=== PATIENT | female | born 1940 | race Caucasian/White ===

== ENCOUNTER 2017-02-01 23:26 | Emergency (ER) | payer MEDICARE, OTHER ==
[2017-02-02] MEDS ORDERED: Ciprofloxacin in D5W 400 MG in Premix Bag 1 BAG IV ONE ×2 (01:39)
[2017-02-02 02:17] VITALS: BP 140/78
--- NOTE | 2017-02-02 02:27 | EDM.PDOC ---
ED HPI SEPSIS - General Chief Complaint: Fever Stated Complaint: SHAKING Time Seen by Provider: 02/01/17 23:55 Source: Reports: Patient History Limitations: Reports: No limitations - History of Present Illness INITIAL COMMENTS - FREE TEXT/NARRATIVE: History of present illness: [This 76-year-old female presented to the ER with a history of having shaking chills that started at 8:30 PM out of the blue. She had been feeling fine prior to this. She presented here with a fever of 103.5. She does not have a sore throat or cough or dysuria or abdominal pain or skin infections or any source of infection to explain this. She has been in relatively good health.] Review of systems: As per history of present illness and below otherwise all systems reviewed and negative. Past medical history: As per history of present illness and as reviewed below otherwise noncontributory. Surgical history: As per history of present illness and as reviewed below otherwise noncontributory. Social history: No reported history of drug or alcohol abuse. Family history: As per history of present illness and as reviewed below otherwise noncontributory. Physical exam: HEENT: Atraumatic, normocephalic, pupils reactive, negative for conjunctival pallor or scleral icterus, mucous membranes moist, throat clear, neck supple, nontender, trachea midline. Lungs: Clear to auscultation, breath sounds equal bilaterally, chest nontender. Heart: S1S2, regular, negative for clicks, rubs, or JVD. Abdomen: Soft, nondistended, nontender. Negative for masses or hepatosplenomegaly. Pelvis: Stable nontender. Genitourinary: Deferred. Rectal: Deferred. Extremities: Atraumatic, negative for cords or calf pain. Neurovascular unremarkable. Neuro: Awake, alert, oriented. Cranial nerves II through XII unremarkable. Cerebellum unremarkable. Motor and sensory unremarkable throughout. Exam nonfocal. Diagnostics: [CBC shows a slight elevation of the white count with a left shift. Chest x- ray looked clear. Blood cultures were obtained. UA and urine cultures were obtained. Urinalysis suggests UTI and with the fever the possibility of pyelonephritis] Therapeutics: [Patient was given IV Cipro 400 mg] Impression: [UTI with probable upper tract involvement] Plan: [Cipro 500 mg twice a day for 7 days. Follow up in the clinic or ER if she continues to have fevers and chills that are not resolving in the next 24-48 hours.] Definitive disposition and diagnosis as appropriate pending reevaluation and review of above. - Related Data Allergies/ADRs: Allergies Allergy/AdvReac Type Severity Reaction Status Date / Time lisinopril Allergy Cough Verified 02/01/17 23:45 Penicillins Allergy Rash Verified 01/10/15 20:53 Sulfa (Sulfonamide Allergy Rash Verified 01/10/15 20:53 Antibiotics) Home Meds: Home Meds Aspirin [Low Dose Aspirin EC] 81 mg PO DAILY 12/30/14 [History] Cholecalciferol (Vitamin D3) [Vitamin D3] 1 cap PO DAILY 12/30/14 [History] Fish Oil/DHA/EPA [Fish Oil 1,200 MG] 1,200 mg PO DAILY 12/30/14 [History] Ibuprofen 600 mg PO BID PRN 12/30/14 [History] Multivitamin with Minerals [Multiple Vitamin] 1 tab PO DAILY 12/30/14 [History] Oxyquinoline/Sod.Lauryl Sulf [Trimo-Day Jelly] 1 applic VAG ASDIRECTED PRN 12/30 [History] amLODIPine Besylate [Norvasc] 2.5 mg PO BEDTIME 12/30/14 [History] Metoprolol Succinate [Toprol XL] 50 mg PO DAILY 01/10/15 [History] Acetaminophen [Acetaminophen Extra Strength] 500 mg PO Q4HR PRN 02/02/17 [ History] Ascorbate Calcium/Bioflavonoid [Sakshi-C 500 MG] 1 each PO DAILY 02/02/17 [ History] Losartan [Cozaar] 50 mg PO DAILY 02/02/17 [History] Methocarbamol [Robaxin] 500 mg PO Q4HR 02/02/17 [History] Ranitidine HCl [Zantac 75] 75 mg PO BID 02/02/17 [History] Past Medical History HEENT History: Reports: Cataract Cardiovascular History: Reports: High cholesterol, Hypertension Gastrointestinal History: Reports: GERD 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: , 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 (see below) Other OB/BYN History: Menopausal Musculoskeletal History: Reports: Osteoarthritis, Other (see below) Other Musculoskeletal History: Back spasms Endocrine/Metabolic History: Reports: Vitamin D deficiency - Infectious Disease History Infectious Disease History: Reports: Chicken pox - Past Surgical History HEENT Surgical History: Reports: Adenoidectomy, Tonsillectomy GI Surgical History: Reports: Appendectomy, Cholecystectomy, Other (see below) Other GI Surgeries/Procedures: Exploratory Lap Social & Family History - Tobacco Use Smoking Status *Q: Never Smoker Second Hand Smoke Exposure: No - Caffeine Use Caffeine Use: Reports: Coffee - Alcohol Use Days Per Week of Alcohol Use: 0 - Recreational Drug Use Recreational Drug Use: No ED ROS GENERAL - Review of Systems Review Of Systems: ROS reveals no pertinent complaints other than HPI. ED EXAM, SEPSIS - Physical Exam Exam: See Below Course - Vital Signs Last Recorded V/S: Last Vital Signs Temp 37.8 C 02/02/17 02:16 Pulse 89 02/02/17 02:16 Resp 17 02/02/17 02:16 BP 140/78 02/02/17 02:16 Pulse Ox 96 02/02/17 02:16 - Orders/Labs/Meds Orders: Active Orders 24 hr Category Date Time Status Chest 2V [CR] Stat Exams 02/02/17 00:15 Taken Ciprofloxacin in D5W [Cipro in D5W 400 MG/200 ML] 400 Med 02/02/17 01:39 Active mg Premix Bag 1 bag IV ONETIME Medication Orders Ciprofloxacin/Dextrose 400 mg/ (Premix) 200 mls @ 200 mls/hr IV ONETIME ONE Stop: 02/02/17 02:38 Last Admin: 02/02/17 02:11 Dose: 200 mls/hr Labs: Laboratory Tests 02/01/17 02/01/17 02/01/17 Range/Units 00:05 00:05 00:05 WBC 12.4 H (4.5-11.0) K/uL RBC 4.91 (3.30-5.50) M/uL Hgb 14.4 (12.0-15.0) g/dL Hct 43.6 (36.0-48.0) % MCV 89 (80-98) fL MCH 29 (27-31) pg MCHC 33 (32-36) % Plt Count 273 (150-400) K/uL Neut % (Auto) 94 H (36-66) % Lymph % (Auto) 3 L (24-44) % [place] % (Auto) 2 (2-6) % Eos % (Auto) 1 L (2-4) % Baso % (Auto) 0 (0-1) % Sodium 143 (140-148) mmol/L Potassium 3.8 (3.6-5.2) mmol/L Chloride 105 (100-108) mmol/L Carbon Dioxide 25 (21-32) mmol/L Anion Gap 13.5 (5.0-14.0) mmol/L BUN 19 H (7-18) mg/dL Creatinine 0.7 (0.6-1.0) mg/dL Est Cr Clr Drug Dosing 60.89 mL/min Estimated GFR (MDRD) > 60 (>60) Glucose 119 H (74-106) mg/dL Lactic Acid 1.7 (0.4-2.0) mmol/L Calcium 10.0 (8.5-10.1) mg/dL Total Bilirubin 1.4 H D (0.2-1.0) mg/dL AST 18 (15-37) U/L ALT 46 (12-78) U/L Alkaline Phosphatase 94 (46-116) U/L C-Reactive Protein (0.0-0.3) mg/dL Total Protein 7.3 (6.4-8.2) g/dL Albumin 4.2 (3.4-5.0) g/dL Globulin 3.1 (2.3-3.5) g/dL Albumin/Globulin Ratio 1.4 (1.2-2.2) Urine Color Urine Appearance Urine pH (4.5-8.0) Ur Specific [place] (1.008-1.030) Urine Protein (NEGATIVE) mg/dL Urine Glucose (UA) (NEGATIVE) mg/dL Urine Ketones (NEGATIVE) mg/dL Urine Occult Blood (NEGATIVE) Urine Nitrite (NEGATIVE) Urine Bilirubin (NEGATIVE) Urine Urobilinogen (NORMAL) mg/dL Ur Leukocyte Esterase (NEGATIVE) Urine RBC (0-5) Urine WBC (0-5) Ur Epithelial Cells Amorphous Sediment Urine Bacteria Urine Mucus 02/01/17 02/02/17 Range/Units 00:05 00:48 WBC (4.5-11.0) K/uL RBC (3.30-5.50) M/uL Hgb (12.0-15.0) g/dL Hct (36.0-48.0) % MCV (80-98) fL MCH (27-31) pg MCHC (32-36) % Plt Count (150-400) K/uL Neut % (Auto) (36-66) % Lymph % (Auto) (24-44) % [place] % (Auto) (2-6) % Eos % (Auto) (2-4) % Baso % (Auto) (0-1) % Sodium (140-148) mmol/L Potassium (3.6-5.2) mmol/L Chloride (100-108) mmol/L Carbon Dioxide (21-32) mmol/L Anion Gap (5.0-14.0) mmol/L BUN (7-18) mg/dL Creatinine (0.6-1.0) mg/dL Est Cr Clr Drug Dosing mL/min Estimated GFR (MDRD) (>60) Glucose (74-106) mg/dL Lactic Acid (0.4-2.0) mmol/L Calcium (8.5-10.1) mg/dL Total Bilirubin (0.2-1.0) mg/dL AST (15-37) U/L ALT (12-78) U/L Alkaline Phosphatase (46-116) U/L C-Reactive Protein 0.20 (0.0-0.3) mg/dL Total Protein (6.4-8.2) g/dL Albumin (3.4-5.0) g/dL Globulin (2.3-3.5) g/dL Albumin/Globulin Ratio (1.2-2.2) Urine Color Yellow Urine Appearance Slightly cloudy Urine pH 6.0 (4.5-8.0) Ur Specific [place] 1.015 (1.008-1.030) Urine Protein Negative (NEGATIVE) mg/dL Urine Glucose (UA) Normal (NEGATIVE) mg/dL Urine Ketones Negative (NEGATIVE) mg/dL Urine Occult Blood Negative (NEGATIVE) Urine Nitrite Positive H (NEGATIVE) Urine Bilirubin Negative (NEGATIVE) Urine Urobilinogen Normal (NORMAL) mg/dL Ur Leukocyte Esterase Negative (NEGATIVE) Urine RBC Not seen (0-5) Urine WBC 5-10 H (0-5) Ur Epithelial Cells Few Amorphous Sediment Not seen Urine Bacteria Many Urine Mucus Not seen Meds: Medications Generic Name Dose Route Start Last Admin Trade Name Freq PRN Reason Stop Dose Admin Ciprofloxacin/Dextrose 400 mg/ 200 mls @ 200 mls/hr 02/02/17 01:39 02/02/17 02:11 Premix IV 02/02/17 02:38 200 mls/hr ONETIME ONE Administration Departure - Departure Time of Disposition: 02:25 Disposition: Home, Self-Care 01 Condition: good Clinical Impression: Pyelonephritis Forms: ED Department Discharge Additional Instructions: If you are still having trouble with fever and chills next 24-48 hours he should be seen again. He will either have to go to the clinic or come to the ER. The antibiotics that were giving you should be covering the karla that is causing the fever and chills and if the fever and chills persisted could be that we'll have to switch her to a different antibiotic. - My Orders Last 24 Hours: My Active Orders 02/02/17 00:15 Chest 2V [CR] Stat 02/02/17 01:39 Ciprofloxacin in D5W [Cipro in D5W 400 MG/200 ML] 400 mg Premix Bag 1 bag IV ONETIME - Assessment/Plan Last 24 Hours: My Active Orders 02/02/17 00:15 Chest 2V [CR] Stat 02/02/17 01:39 Ciprofloxacin in D5W [Cipro in D5W 400 MG/200 ML] 400 mg Premix Bag 1 bag IV ONETIME
--- NOTE | 2017-02-02 09:00 | CR ---
Heart size within normal limits. No focal consolidation. Tortuous aorta. Faint nodule right midlung zone near 6 mm. Recommend noncontrast chest CT follow-up to exclude pulmonary nodule
== END 2017-02-02 03:20 | disposition home or self-care (01) ==
LOC: JP.ED 23:26
DX: N12 Tubulo-interstitial nephritis, not specified as acute or chronic (principal); I10 Essential (primary) hypertension; E78.00 Pure hypercholesterolemia, unspecified; K21.9 Gastro-esophageal reflux disease without esophagitis; Z90.49 Acquired absence of other specified parts of digestive tract; Z98.890 Other specified postprocedural states; Z88.0 Allergy status to penicillin; Z88.2 Allergy status to sulfonamides; Z88.8 Allergy status to other drugs, medicaments and biological substances; Z79.82 Long term (current) use of aspirin; Z79.899 Other long term (current) drug therapy
CPT/HCPCS: 36415; 71020; 80053; 81001; 83605; 85025; 86140; 87040; 87077; 87186; 87804; 96365; 99284; J0744

== ENCOUNTER 2017-02-02 16:50 | Inpatient (IN) | payer MEDICARE, OTHER ==
[2017-02-02] MEDS ORDERED: Polyethylene Glycol 3350 Powder 17 GM Packet PO PRN (17:14)
[2017-02-02] MEDS ORDERED: Magnesium Hydroxide 400 MG/5 ML Susp 30 ML Cup PO PRN (17:14)
[2017-02-02] MEDS ORDERED: Sodium Chloride 0.9% 10 ML Syringe FLUSH PRN (17:14)
[2017-02-02] MEDS ORDERED: oxyCODONE 5 MG Tab PO PRN (17:14)
[2017-02-02] MEDS ORDERED: Ondansetron 4 MG/2 ML SDV IV PRN (17:14)
[2017-02-02] MEDS ORDERED: Docusate Sodium 100 MG Cap PO PRN (17:14)
[2017-02-02] MEDS ORDERED: HYDROmorphone 0.5 MG/0.5 ML Syringe IVPUSH PRN (17:23)
--- NOTE | 2017-02-02 19:14 | PCM.HP ---
H&P History of Present Illness - General Date of Service: 02/02/17 Admit Problem/Dx: Admission Diagnosis/Problem Admission Diagnosis/Problem Pyelonephritis Source of Information: Patient, Family, Provider, RN notes reviewed History Limitations: Reports: No limitations - History of Present Illness Initial Comments - Free Text/Narative: Ms. Hdez is a 76-year-old woman who developed fever and chills last night. When her symptoms did not resolve she presented to the emergency department late in the evening, chest x-ray was unremarkable, white blood cell count was modestly elevated. Urinalysis was obtained and showed evidence of possible infection with 5-10 WBCs and positive nitrites with many bacteria. She was given IV ciprofloxacin in the emergency department and discharged to home with a prescription for oral ciprofloxacin and a presumptive diagnosis of urinary tract infection, probable pyelonephritis. She did not feel well this morning and did have mild recurrent temperature elevation so she presented to the walk- in clinic for further evaluation. On evaluation there she was hemodynamically stable but did have mild persistent elevation in her white blood cell count. She was referred for direct admission for management of presumptive pyelonephritis. At the present time she is feeling relatively well and denies significant flank pain or tenderness. Vital signs are stable and she is currently afebrile. - Related Data Allergies/Adverse Reactions: Allergies Allergy/AdvReac Type Severity Reaction Status Date / Time Penicillins Allergy Rash Verified 01/10/15 20:53 Sulfa (Sulfonamide Allergy Rash Verified 01/10/15 20:53 Antibiotics) lisinopril AdvReac Cough Verified 02/02/17 17:30 Home Medications: Home Meds Aspirin [Low Dose Aspirin EC] 81 mg PO DAILY 12/30/14 [History] Cholecalciferol (Vitamin D3) [Vitamin D3] 1 cap PO DAILY 12/30/14 [History] Fish Oil/DHA/EPA [Fish Oil 1,200 MG] 1,200 mg PO DAILY 12/30/14 [History] Ibuprofen 600 mg PO BID PRN 12/30/14 [History] Multivitamin with Minerals [Multiple Vitamin] 1 tab PO DAILY 12/30/14 [History] Oxyquinoline/Sod.Lauryl Sulf [Trimo-Day Jelly] 1 applic VAG ASDIRECTED PRN 12/30 [History] amLODIPine Besylate [Norvasc] 2.5 mg PO BEDTIME 12/30/14 [History] Metoprolol Succinate [Toprol XL] 50 mg PO DAILY 01/10/15 [History] Acetaminophen [Acetaminophen Extra Strength] 500 mg PO Q4HR PRN 02/02/17 [ History] Ascorbate Calcium/Bioflavonoid [Sakshi-C 500 MG] 1 each PO DAILY 02/02/17 [ History] Losartan [Cozaar] 50 mg PO DAILY 02/02/17 [History] Methocarbamol [Robaxin] 500 mg PO Q4HR 02/02/17 [History] Ranitidine HCl [Zantac 75] 75 mg PO BID 02/02/17 [History] Past Medical History HEENT History: Reports: Cataract Cardiovascular History: Reports: High cholesterol, Hypertension Gastrointestinal History: Reports: GERD 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: , Other (see below) Other OB/BYN History: Menopausal Musculoskeletal History: Reports: Osteoarthritis, Other (see below) Other Musculoskeletal History: Back spasms Endocrine/Metabolic History: Reports: Vitamin D deficiency - Infectious Disease History Infectious Disease History: Reports: Chicken pox - Past Surgical History HEENT Surgical History: Reports: Adenoidectomy, Tonsillectomy GI Surgical History: Reports: Appendectomy, Cholecystectomy, Other (see below) Other GI Surgeries/Procedures: Exploratory Lap Social & Family History - Tobacco Use Smoking Status *Q: Never Smoker Second Hand Smoke Exposure: No - Caffeine Use Caffeine Use: Reports: Coffee - Alcohol Use Days Per Week of Alcohol Use: 0 - Recreational Drug Use Recreational Drug Use: No H&P Review of Systems - Review of Systems: Review Of Systems: See Below General: Reports: fever, chills, weakness, diaphoresis HEENT: Reports: no symptoms Pulmonary: Reports: No Symptoms Cardiovascular: Reports: no symptoms Gastrointestinal: Reports: No symptoms Genitourinary: Reports: no symptoms Musculoskeletal: Reports: no symptoms Skin: Reports: no symptoms Psychiatric: Reports: no symptoms Neurological: Reports: No Symptoms Hematologic/Lymphatic: Reports: no symptoms Immunologic: Reports: no symptoms Exam - Exam Exam: See Below - Vital Signs Vital Signs: Last Vital Signs Temp 101.2 F H 02/02/17 17:20 Pulse 89 02/02/17 17:20 Resp 12 02/02/17 17:20 BP 143/66 H 02/02/17 17:20 Pulse Ox 97 02/02/17 17:20 Weight: 152 lb 1.903 oz - Exam Quality Assessment: DVT prophylaxis General: alert, oriented, cooperative HEENT: Conjunctiva clear, Hearing intact, Mucosa moist & pink, Nares patent, Normal nasal septum, Posterior pharynx clear, Pupils equal, Pupils reactive Neck: supple, trachea midline, +2 carotid pulse wo bruit Lungs: Clear to auscultation, Normal respiratory effort Cardiovascular: regular rate, regular rhythm, normal S1, normal S2. No: irregular rhythm, bradycardia, tachycardia, systolic murmur, diastolic murmur Abdomen: normal bowel sounds, soft Back Exam: normal inspection, full range of motion. No: CVA tenderness (R), CVA tenderness (L) Extremities: 3, normal inspection, 10 Skin: warm, dry, intact Neurological: cranial nerves intact, strength equal bilateral, normal speech, normal tone, sensation intact. No: focal deficit Neuro Extensive - Mental Status: alert, oriented x3, normal mood/affect, normal cognition, memory intact *Q Meaningful Use (ADM) - VTE *Q VTE Criteria *Q: - VTE Risk Assess *Q Each Risk Factor Represents 1 Point: None Total Score 1 Point Risk Factors: 0 Each Risk Factor Represents 2 Points: Age 60 - 74 Years Total Score 2 Point Risk Factors: 2 Each Risk Factor Represents 3 Points: None Total Score 3 Point Risk Factors: 0 Each Risk Factor Represents 5 Points: None Total Score 5 Point Risk Factors: 0 Venous Thromboembolism Risk Factor Score *Q: 2 - Stroke *Q Stroke Criteria *Q: - AMI *Q AMI Criteria *Q: Problem List Initiated/Reviewed/Updated: Yes Orders Last 24hrs: Active Orders 24 hr Category Date Time Status Patient Status [ADT] Routine ADT 02/02/17 17:15 Active Intake and Output [RC] QSHIFT Care 02/02/17 17:15 Active Notify Provider Vital Signs [RC] ASDIRECTED Care 02/02/17 17:16 Active Oxygen Therapy [RC] PRN Care 02/02/17 17:15 Active Peripheral IV Care [RC] . DIRECTED Care 02/02/17 17:20 Active Up With Assistance [RC] ASDIRECTED Care 02/02/17 17:14 Active VTE/DVT Education [RC] Per Unit Routine Care 02/02/17 17:15 Active Vital Signs [RC] Q4H Care 02/02/17 17:15 Active Regular Diet [DIET] Diet 02/02/17 Dinner Active CBC WITH AUTO DIFF [HEME] AM Lab 02/03/17 05:11 Ordered COMPREHENSIVE METABOLIC PN,CMP [CHEM] AM Lab 02/03/17 05:11 Ordered CULTURE BLOOD [BC] Stat Lab 02/02/17 17:35 Received CULTURE BLOOD [BC] Stat Lab 02/02/17 17:45 Received MAGNESIUM [CHEM] AM Lab 02/03/17 05:11 Ordered Acetaminophen [Tylenol] Med 02/02/17 17:14 Active 650 mg PO Q4H PRN Aspirin [Halfprin] Med 02/03/17 09:00 Active 81 mg PO DAILY Docusate Sodium [Colace] Med 02/02/17 17:14 Active 100 mg PO BID PRN Enoxaparin [Lovenox] Med 02/02/17 21:00 Active 40 mg SUBCUT Q24H HYDROmorphone [Dilaudid] Med 02/02/17 17:23 Active 0.5 mg IVPUSH Q2H PRN Lactated Ringers [Ringers, Lactated] 1,000 ml Med 02/02/17 17:15 Active IV ASDIRECTED Losartan [Cozaar] Med 02/03/17 09:00 Active 50 mg PO DAILY Magnesium Hydroxide [Milk of Magnesia] Med 02/02/17 17:14 Active 30 ml PO Q12H PRN Metoprolol Succinate [Toprol XL] Med 02/03/17 09:00 Active 50 mg PO DAILY Ondansetron [Zofran] Med 02/02/17 17:14 Active 4 mg IV Q4H PRN Pantoprazole [Protonix] Med 02/03/17 07:30 Active 40 mg PO DAILY@0730 Polyethylene Glycol 3350 [MiraLAX] Med 02/02/17 17:14 Active 17 gm PO DAILY PRN Sodium Chloride 0.9% [Saline Flush] Med 02/02/17 17:14 Active 10 ml FLUSH ASDIRECTED PRN amLODIPine [Norvasc] Med 02/02/17 21:00 Active 2.5 mg PO BEDTIME cefTRIAXone [Rocephin] 1 gm Med 02/02/17 18:00 Active Sodium Chloride 0.9% [Normal Saline] 50 ml IV Q24H oxyCODONE Med 02/02/17 17:14 Active 5 mg PO Q4H PRN Blood Culture x2 Reflex Set [OM.PC] Stat Oth 02/02/17 17:20 Ordered Peripheral IV Insertion Adult [OM.PC] Routine Oth 02/02/17 17:14 Ordered Resuscitation Status Routine Resus Stat 02/02/17 17:14 Ordered Medication Orders Acetaminophen (Tylenol) 650 mg PO Q4H PRN PRN Reason: Pain (Mild 1-3)/fever Amlodipine Besylate (Norvasc) 2.5 mg PO BEDTIME KAYLA Aspirin (Halfprin) 81 mg PO DAILY KAYLA Docusate Sodium (Colace) 100 mg PO BID PRN PRN Reason: Constipation Enoxaparin Sodium (Lovenox) 40 mg SUBCUT Q24H KAYLA Hydromorphone HCl (Dilaudid) 0.5 mg IVPUSH Q2H PRN PRN Reason: Pain Lactated Ringer's (Ringers, Lactated) 1,000 mls @ 125 mls/hr IV ASDIRECTED KAYLA Ceftriaxone Sodium 1 gm/ (Sodium Chloride) 50 mls @ 100 mls/hr IV Q24H KAYLA Losartan Potassium (Cozaar) 50 mg PO DAILY KAYLA Magnesium Hydroxide (Milk Of Magnesia) 30 ml PO Q12H PRN PRN Reason: Constipation Metoprolol Succinate (Toprol Xl) 50 mg PO DAILY KAYLA Ondansetron HCl (Zofran) 4 mg IV Q4H PRN PRN Reason: Nausea/Vomiting Oxycodone HCl (Oxycodone) 5 mg PO Q4H PRN PRN Reason: Pain (moderate 4-6) Pantoprazole Sodium (Protonix) 40 mg PO DAILY@0730 KAYLA Polyethylene Glycol (Miralax) 17 gm PO DAILY PRN PRN Reason: Constipation Sodium Chloride (Saline Flush) 10 ml FLUSH ASDIRECTED PRN PRN Reason: Keep Vein Open Assessment/Plan Comment:: ASSESSMENT AND PLAN URINARY TRACT INFECTION-associated with significant temperature elevation on initial presentation. Mild temperature elevation since evaluation last night with weakness and fatigue. She carries a presumptive diagnosis of pyelonephritis, has not experienced significant flank pain and there has been no confirmatory CT scan. -Blood cultures and urine culture pending -Pain and antiemetic therapy as needed -IV fluids for hydration -IV Rocephin 1 g 24 hours pending culture results HYPERTENSION -Continue outpatient medical regimen MAINTENANCE ISSUES -DVT prophylaxis; Lovenox 40 mg subcutaneous daily -GI prophylaxis; Protonix 40 mg by mouth daily -Tate catheter; none indicated -Nutrition; regular diet -Nicotine dependence; not required CODE STATUS-full code ADMISSION STATUS-patient will be admitted to inpatient status, expect at least a 2 night hospital stay for evaluation and management of problems as outlined above. At the time of this admission I do not reasonably expected evaluation and management of this problem will require more than a 96 hour hospital stay. DISPOSITION-anticipate discharge to home after the hospital stay. PRIMARY CARE PROVIDER-Pablo Mcconnell
[2017-02-02] MEDS: Lactated Ringers 1,000 ML IV SCH (20:27)
[2017-02-02] MEDS: cefTRIAXone 1 GM in Sodium Chloride 0.9% 50 ML IV SCH (20:28)
[2017-02-02] MEDS: Acetaminophen 325 MG Tab PO PRN (20:36)
[2017-02-02] MEDS: Enoxaparin 40 MG/0.4 ML Syringe SUBCUT SCH (22:06)
[2017-02-02] MEDS: amLODIPine 2.5 MG Tab PO SCH (22:08)
[2017-02-03] MEDS: Acetaminophen 325 MG Tab PO PRN (03:40)
[2017-02-03] MEDS: Lactated Ringers 1,000 ML IV SCH ×2 (03:55→13:22)
[2017-02-03] MEDS: Pantoprazole 40 MG Tab.CR PO SCH (07:29)
[2017-02-03] MEDS: Metoprolol Succinate 50 MG Tab.ER PO SCH (09:03)
[2017-02-03] MEDS: Losartan 50 MG Tab PO SCH (09:04)
[2017-02-03] MEDS: Aspirin 81 MG Tab.EC PO SCH (09:04)
[2017-02-03] MEDS ORDERED: Potassium Chloride 20 MEQ Tab.ER PO ONE (10:00)
[2017-02-03] MEDS: Magnesium Oxide 400 MG Tab PO SCH ×2 (10:57→22:03)
--- NOTE | 2017-02-03 14:01 | PCM.PN ---
- General Info Date of Service: 02/03/17 Functional Status: Reports: tolerating diet, ambulating, urinating - Review of Systems General: Reports: Fever. Denies: Weakness, Fatigue, Chills Pulmonary: Reports: no symptoms Cardiovascular: Reports: No Symptoms Gastrointestinal: Reports: No symptoms Genitourinary: Reports: no symptoms Systems Review Comment:: This patient has been stable since admission, there have been recurrent mild temperature elevations. Vital signs have been stable, continues to deny significant flank or abdominal pain. - Patient Data Vitals - most recent: Last Vital Signs Temp 96.2 F 02/03/17 11:24 Pulse 75 02/03/17 11:24 Resp 16 02/03/17 11:24 BP 139/67 02/03/17 11:24 Pulse Ox 99 02/03/17 11:24 Weight - most recent: 152 lb 1.903 oz I&O - last 24 hours: Intake & Output 02/02/17 02/03/17 02/03/17 22:59 06:59 14:59 Intake Total 50 1071 660 Output Total 500 1200 Balance 50 571 -540 Lab Results last 24 hrs: Laboratory Results - last 24 hr 02/03/17 02/03/17 Range/Units 05:40 05:40 WBC 5.5 (4.5-11.0) K/uL RBC 4.52 (3.30-5.50) M/uL Hgb 13.3 (12.0-15.0) g/dL Hct 40.3 (36.0-48.0) % MCV 89 (80-98) fL MCH 29 (27-31) pg MCHC 33 (32-36) % Plt Count 204 (150-400) K/uL Neut % (Auto) 88 H (36-66) % Lymph % (Auto) 6 L (24-44) % [place] % (Auto) 6 (2-6) % Eos % (Auto) 0 L (2-4) % Baso % (Auto) 0 (0-1) % Sodium 142 (140-148) mmol/L Potassium 3.3 L (3.6-5.2) mmol/L Chloride 106 (100-108) mmol/L Carbon Dioxide 26 (21-32) mmol/L Anion Gap 13.3 (5.0-14.0) mmol/L BUN 9 D (7-18) mg/dL Creatinine 0.7 (0.6-1.0) mg/dL Est Cr Clr Drug Dosing 60.89 mL/min Estimated GFR (MDRD) > 60 (>60) Glucose 110 H (74-106) mg/dL Calcium 8.7 (8.5-10.1) mg/dL Magnesium 1.7 L (1.8-2.4) mg/dL Total Bilirubin 0.7 (0.2-1.0) mg/dL AST 31 (15-37) U/L ALT 51 (12-78) U/L Alkaline Phosphatase 81 (46-116) U/L Total Protein 6.1 L (6.4-8.2) g/dL Albumin 3.2 L (3.4-5.0) g/dL Globulin 2.9 (2.3-3.5) g/dL Albumin/Globulin Ratio 1.1 L (1.2-2.2) Med Orders - Current: Current Medications Acetaminophen (Tylenol) 650 mg PO Q4H PRN PRN Reason: Pain (Mild 1-3)/fever Last Admin: 02/03/17 03:40 Dose: 650 mg Amlodipine Besylate (Norvasc) 2.5 mg PO BEDTIME [facility] Last Admin: 02/02/17 22:08 Dose: 2.5 mg Aspirin (Halfprin) 81 mg PO DAILY [facility] Last Admin: 02/03/17 09:04 Dose: 81 mg Docusate Sodium (Colace) 100 mg PO BID PRN PRN Reason: Constipation Enoxaparin Sodium (Lovenox) 40 mg SUBCUT Q24H [facility] Last Admin: 02/02/17 22:06 Dose: 40 mg Hydromorphone HCl (Dilaudid) 0.5 mg IVPUSH Q2H PRN PRN Reason: Pain Ceftriaxone Sodium 1 gm/ (Sodium Chloride) 50 mls @ 100 mls/hr IV Q24H [facility] Last Admin: 02/02/17 20:28 Dose: 100 mls/hr Losartan Potassium (Cozaar) 50 mg PO DAILY [facility] Last Admin: 02/03/17 09:04 Dose: 50 mg Magnesium Hydroxide (Milk Of Magnesia) 30 ml PO Q12H PRN PRN Reason: Constipation Magnesium Oxide (Magnesium Oxide) 400 mg PO BID [facility] Last Admin: 02/03/17 10:57 Dose: 400 mg Metoprolol Succinate (Toprol Xl) 50 mg PO DAILY [facility] Last Admin: 02/03/17 09:03 Dose: 50 mg Ondansetron HCl (Zofran) 4 mg IV Q4H PRN PRN Reason: Nausea/Vomiting Oxycodone HCl (Oxycodone) 5 mg PO Q4H PRN PRN Reason: Pain (moderate 4-6) Pantoprazole Sodium (Protonix) 40 mg PO DAILY@0730 [facility] Last Admin: 02/03/17 07:29 Dose: 40 mg Polyethylene Glycol (Miralax) 17 gm PO DAILY PRN PRN Reason: Constipation Sodium Chloride (Saline Flush) 10 ml FLUSH ASDIRECTED PRN PRN Reason: Keep Vein Open Discontinued Medications Lactated Ringer's (Ringers, Lactated) 1,000 mls @ 125 mls/hr IV ASDIRECTED [facility] Last Admin: 02/03/17 13:22 Dose: 125 mls/hr Potassium Chloride (Klor-Con M20) 40 meq PO ONETIME ONE Stop: 02/03/17 10:01 Last Admin: 02/03/17 10:57 Dose: 40 meq - Exam Quality Assessment: DVT prophylaxis General: alert, oriented, cooperative, no acute distress Lungs: Clear to auscultation, Normal respiratory effort Cardiovascular: Regular Rate, Regular Rhythm, No Murmurs Abdomen: bowel sounds present, soft, no tenderness, no distension Extremities: no edema Skin: warm, dry, intact - Problem List Review Problem List Initiated/Reviewed/Updated: Yes - My Orders Last 24 Hours: My Active Orders 02/02/17 17:14 Up With Assistance [RC] ASDIRECTED Acetaminophen [Tylenol] 650 mg PO Q4H PRN Docusate Sodium [Colace] 100 mg PO BID PRN Magnesium Hydroxide [Milk of Magnesia] 30 ml PO Q12H PRN Ondansetron [Zofran] 4 mg IV Q4H PRN Polyethylene Glycol 3350 [MiraLAX] 17 gm PO DAILY PRN Sodium Chloride 0.9% [Saline Flush] 10 ml FLUSH ASDIRECTED PRN oxyCODONE 5 mg PO Q4H PRN Peripheral IV Insertion Adult [OM.PC] Routine Resuscitation Status Routine 02/02/17 17:15 Patient Status [ADT] Routine Intake and Output [RC] QSHIFT Oxygen Therapy [RC] PRN VTE/DVT Education [RC] Per Unit Routine Vital Signs [RC] Q4H 02/02/17 17:16 Notify Provider Vital Signs [RC] ASDIRECTED 02/02/17 17:20 Peripheral IV Care [RC] . DIRECTED Blood Culture x2 Reflex Set [OM.PC] Stat 02/02/17 17:23 HYDROmorphone [Dilaudid] 0.5 mg IVPUSH Q2H PRN 02/02/17 17:35 CULTURE BLOOD [BC] Stat 02/02/17 17:45 CULTURE BLOOD [BC] Stat 02/02/17 18:00 cefTRIAXone [Rocephin] 1 gm Sodium Chloride 0.9% [Normal Saline] 50 ml IV Q24H 02/02/17 21:00 Enoxaparin [Lovenox] 40 mg SUBCUT Q24H amLODIPine [Norvasc] 2.5 mg PO BEDTIME 02/02/17 Dinner Regular Diet [DIET] 02/03/17 07:30 Pantoprazole [Protonix] 40 mg PO DAILY@0730 02/03/17 09:00 Aspirin [Halfprin] 81 mg PO DAILY Losartan [Cozaar] 50 mg PO DAILY Metoprolol Succinate [Toprol XL] 50 mg PO DAILY 02/03/17 10:00 Magnesium Oxide 400 mg PO BID 02/03/17 13:58 Convert IV to Saline Lock [OM.PC] Routine - Plan Plan:: ASSESSMENT AND PLAN URINARY TRACT INFECTION-associated with significant temperature elevation on initial presentation. Mild temperature elevation since evaluation last night with weakness and fatigue. She carries a presumptive diagnosis of pyelonephritis, has not experienced significant flank pain and there has been no confirmatory CT scan. Overall stable since admission with mild recurrent temperature elevation -Blood cultures and urine culture pending -Pain and antiemetic therapy as needed -Saline lock IV -IV Rocephin 1 g 24 hours pending culture results HYPERTENSION -Continue outpatient medical regimen MAINTENANCE ISSUES -DVT prophylaxis; Lovenox 40 mg subcutaneous daily -GI prophylaxis; Protonix 40 mg by mouth daily -Tate catheter; none indicated -Nutrition; regular diet -Nicotine dependence; not required CODE STATUS-full code ADMISSION STATUS-patient will be admitted to inpatient status, expect at least a 2 night hospital stay for evaluation and management of problems as outlined above. At the time of this admission I do not reasonably expected evaluation and management of this problem will require more than a 96 hour hospital stay. DISPOSITION-anticipate discharge to home tomorrow PRIMARY CARE PROVIDER-Pablo Mcconnell
[2017-02-03] MEDS: cefTRIAXone 1 GM in Sodium Chloride 0.9% 50 ML IV SCH (18:21)
[2017-02-03] MEDS: Enoxaparin 40 MG/0.4 ML Syringe SUBCUT SCH (22:03)
[2017-02-03] MEDS: amLODIPine 2.5 MG Tab PO SCH (22:03)
[2017-02-04 07:19] VITALS: BP 126/67
[2017-02-04] MEDS: Pantoprazole 40 MG Tab.CR PO SCH (07:21)
[2017-02-04] MEDS: Losartan 50 MG Tab PO SCH ×2 (07:38→10:35)
[2017-02-04] MEDS: Aspirin 81 MG Tab.EC PO SCH ×2 (07:39→10:35)
[2017-02-04] MEDS: Magnesium Oxide 400 MG Tab PO SCH ×2 (07:40→10:35)
[2017-02-04] MEDS: Metoprolol Succinate 50 MG Tab.ER PO SCH ×2 (07:40→10:35)
--- NOTE | 2017-02-04 12:43 | PCM.DCSUM1 ---
Discharge Summary - Hospital Course Brief History: Ms. Hdez is a 76-year-old woman who is admitted as a direct admission from the clinic with weakness and fever secondary to a urinary tract infection. - Discharge Data Discharge Date: 02/04/17 Discharge Disposition: Home, Self-Care 01 Condition: Good - Discharge Diagnosis/Problem(s) (1) UTI (urinary tract infection) SNOMED Code(s): 85806712 ICD Code: N39.0 - URINARY TRACT INFECTION, SITE NOT SPECIFIED Status: Acute Current Visit: Yes Qualifiers: Urinary tract infection type: acute cystitis Hematuria presence: without hematuria Qualified Code(s): N30.00 - Acute cystitis without hematuria - Patient Summary/Data Hospital Course: Ms. Hdez is a 76-year-old woman who developed shaking chills on the evening prior to admission. When symptoms did not resolve after a few hours she presented to the emergency department for further evaluation. On assessment was found to have modest elevation in white blood cell count and associated fever. She was given IV fluids for hydration. Other labs were unremarkable other than urinalysis consistent with urinary tract infection, and it was felt that she possibly had pyelonephritis. She was given a dose of IV ciprofloxacin in the emergency department and sent home with a prescription for oral ciprofloxacin. She continued to have temperature elevation through the extrusion technician hours in into the next day so she presented to the walk-in clinic. Again she was noted to have a modest elevation in white blood cell count, blood cultures from the previous night were reviewed one of 2 bottles was growing a gram-negative roberto. She was referred to the hospital for admission and ongoing management. Initially she was given IV fluids for hydration and started on IV antibiotic therapy with Rocephin. Blood cultures were repeated at the time of admission and remained negative throughout her hospital stay. Following day she was eating and drinking well, IV fluids were discontinued. She continued to feel mildly weak and had mild persistent temperature elevations. He was feeling improved by the day of discharge and will be discharged home on oral antibiotic therapy with Omnicef for an additional week. Activity will be as tolerated and she will resume her usual diet. Followup appointment will be scheduled with her primary care provider within one week. - Patient Instructions Diet: Usual Diet as Tolerated Activity: As Tolerated Other/Special Instructions: Setup followup appointment with primary care provider within one week. - Discharge Plan Prescriptions/Med Rec: Cefdinir [Omnicef] 300 mg PO BID #14 cap Home Medications: Home Meds Aspirin [Low Dose Aspirin EC] 81 mg PO DAILY 12/30/14 [History] Cholecalciferol (Vitamin D3) [Vitamin D3] 1 cap PO DAILY 12/30/14 [History] Fish Oil/DHA/EPA [Fish Oil 1,200 MG] 1,200 mg PO DAILY 12/30/14 [History] Ibuprofen 600 mg PO BID PRN 12/30/14 [History] Multivitamin with Minerals [Multiple Vitamin] 1 tab PO DAILY 12/30/14 [History] Oxyquinoline/Sod.Lauryl Sulf [Trimo-Day Jelly] 1 applic VAG ASDIRECTED PRN 12/30 [History] amLODIPine Besylate [Norvasc] 2.5 mg PO BEDTIME 12/30/14 [History] Metoprolol Succinate [Toprol XL] 50 mg PO DAILY 01/10/15 [History] Acetaminophen [Acetaminophen Extra Strength] 500 mg PO Q4HR PRN 02/02/17 [ History] Ascorbate Calcium/Bioflavonoid [Sakshi-C 500 MG] 1 each PO DAILY 02/02/17 [ History] Losartan [Cozaar] 50 mg PO DAILY 02/02/17 [History] Methocarbamol [Robaxin] 500 mg PO Q4HR 02/02/17 [History] Ranitidine HCl [Zantac 75] 75 mg PO BID 02/02/17 [History] Cefdinir [Omnicef] 300 mg PO BID #14 cap 02/04/17 [Rx] - Patient Data Vitals - Most Recent: Last Vital Signs Temp 98.7 F 02/04/17 07:17 Pulse 81 02/04/17 07:40 Resp 18 02/04/17 04:13 BP 126/67 02/04/17 07:40 Pulse Ox 94 L 02/04/17 07:17 Weight - Most Recent: 152 lb 1.903 oz I&O - Last 24 hours: Intake & Output 02/03/17 02/04/17 02/04/17 22:59 06:59 14:59 Intake Total 960 Output Total 5835 048 3230 Balance -490 -900 -1800 LASHELL Results - Last 24 hrs: Microbiology 02/02/17 17:45 Aerobic Blood Culture - Preliminary Blood - Venous - Lab Draw NO GROWTH AFTER 1 DAY Anaerobic Blood Culture - Preliminary NO GROWTH AFTER 1 DAY 02/02/17 17:35 Aerobic Blood Culture - Preliminary Blood - Venous NO GROWTH AFTER 1 DAY Anaerobic Blood Culture - Preliminary NO GROWTH AFTER 1 DAY Med Orders - Current: Current Medications Acetaminophen (Tylenol) 650 mg PO Q4H PRN PRN Reason: Pain (Mild 1-3)/fever Last Admin: 02/03/17 03:40 Dose: 650 mg Amlodipine Besylate (Norvasc) 2.5 mg PO BEDTIME [facility] Last Admin: 02/03/17 22:03 Dose: 2.5 mg Aspirin (Halfprin) 81 mg PO DAILY [facility] Last Admin: 02/04/17 10:35 Dose: Not Given Docusate Sodium (Colace) 100 mg PO BID PRN PRN Reason: Constipation Enoxaparin Sodium (Lovenox) 40 mg SUBCUT Q24H [facility] Last Admin: 02/03/17 22:03 Dose: 40 mg Hydromorphone HCl (Dilaudid) 0.5 mg IVPUSH Q2H PRN PRN Reason: Pain Ceftriaxone Sodium 1 gm/ (Sodium Chloride) 50 mls @ 100 mls/hr IV Q24H [facility] Last Admin: 02/03/17 18:21 Dose: 100 mls/hr Losartan Potassium (Cozaar) 50 mg PO DAILY [facility] Last Admin: 02/04/17 10:35 Dose: Not Given Magnesium Hydroxide (Milk Of Magnesia) 30 ml PO Q12H PRN PRN Reason: Constipation Magnesium Oxide (Magnesium Oxide) 400 mg PO BID [facility] Last Admin: 02/04/17 10:35 Dose: Not Given Metoprolol Succinate (Toprol Xl) 50 mg PO DAILY [facility] Last Admin: 02/04/17 10:35 Dose: Not Given Ondansetron HCl (Zofran) 4 mg IV Q4H PRN PRN Reason: Nausea/Vomiting Oxycodone HCl (Oxycodone) 5 mg PO Q4H PRN PRN Reason: Pain (moderate 4-6) Pantoprazole Sodium (Protonix) 40 mg PO DAILY@0730 [facility] Last Admin: 02/04/17 07:21 Dose: 40 mg Polyethylene Glycol (Miralax) 17 gm PO DAILY PRN PRN Reason: Constipation Sodium Chloride (Saline Flush) 10 ml FLUSH ASDIRECTED PRN PRN Reason: Keep Vein Open Discontinued Medications Lactated Ringer's (Ringers, Lactated) 1,000 mls @ 125 mls/hr IV ASDIRECTED [facility] Last Admin: 02/03/17 13:22 Dose: 125 mls/hr Potassium Chloride (Klor-Con M20) 40 meq PO ONETIME ONE Stop: 02/03/17 10:01 Last Admin: 02/03/17 10:57 Dose: 40 meq *Q Meaningful Use (DIS) - VTE *Q VTE Criteria *Q: - Stroke *Q Stroke Criteria *Q: - AMI *Q AMI Criteria *Q:
== END 2017-02-04 13:30 | disposition home or self-care (01) | DRG 690 ==
LOC: JP.MS 16:50 → OBSVTOIN 16:59 → JP.MS 16:59
PROVIDERS: ADMIT Hospitalist; ATTEND Hospitalist
DX: N12 Tubulo-interstitial nephritis, not specified as acute or chronic (principal); N30.00 Acute cystitis without hematuria; I10 Essential (primary) hypertension; E78.00 Pure hypercholesterolemia, unspecified; K21.9 Gastro-esophageal reflux disease without esophagitis; M19.90 Unspecified osteoarthritis, unspecified site; E55.9 Vitamin D deficiency, unspecified; Z79.82 Long term (current) use of aspirin; Z88.0 Allergy status to penicillin; Z88.2 Allergy status to sulfonamides; Z88.8 Allergy status to other drugs, medicaments and biological substances
CPT/HCPCS: 36415; 80053; 83735; 85025; 87040; A9270-GY; J0696; J1650; J7050; J7120

== ENCOUNTER 2020-05-30 08:58 | Emergency (ER) | payer MEDICARE, OTHER ==
[2020-05-30 09:14] VITALS: BP 172/77; PULSE 90
--- NOTE | 2020-05-30 09:25 | EDM.PDOC ---
ED HPI GENERAL MEDICAL PROBLEM - General Chief Complaint: Genitourinary Problem Stated Complaint: UTI Time Seen by Provider: 05/30/20 09:00 Source of Information: Reports: Patient History Limitations: Reports: No Limitations - History of Present Illness INITIAL COMMENTS - FREE TEXT/NARRATIVE: 79-year-old female who has had a history of UTIs in the past woke up this morning with increased urinary frequency and burning with urination. No fevers or chills or back pain. She has been struggling over the past couple weeks with an intermittent rash and some small "fever blisters" on her lips but that seems to be improving. She was last treated for UTI about 3 months ago. Onset: Sudden (Symptoms started fairly suddenly this morning about 3 hours ago) Associated Symptoms: Reports: Rash. Denies: Chest Pain, Fever/Chills, Malaise, Nausea/Vomiting, Shortness of Breath - Related Data Allergies Allergy/AdvReac Type Severity Reaction Status Date / Time Penicillins Allergy Rash Verified 05/30/20 09:07 Sulfa (Sulfonamide Allergy Rash Verified 05/30/20 09:07 Antibiotics) lisinopril AdvReac Cough Verified 05/30/20 09:07 Home Meds: Home Meds Aspirin [Low Dose Aspirin EC] 81 mg PO DAILY 12/30/14 [History] Cholecalciferol (Vitamin D3) [Vitamin D3] 1 cap PO DAILY 12/30/14 [History] Fish Oil/DHA/EPA [Fish Oil 1,200 MG] 1,200 mg PO DAILY 12/30/14 [History] Ibuprofen 600 mg PO BID PRN 12/30/14 [History] Multivitamin with Minerals [Multiple Vitamin] 1 tab PO DAILY 12/30/14 [History] Oxyquinoline/Sod.Lauryl Sulf [Trimo-Day Jelly] 1 applic VAG ASDIRECTED PRN 12/30/14 [History] amLODIPine Besylate [Norvasc] 2.5 mg PO BEDTIME 12/30/14 [History] Metoprolol Succinate [Toprol XL] 50 mg PO DAILY 01/10/15 [History] Acetaminophen [Acetaminophen Extra Strength] 500 mg PO Q4HR PRN 02/02/17 [History] Ascorbate Calcium/Bioflavonoid [Sakshi-C 500 MG] 1 each PO DAILY 02/02/17 [History] Losartan [Cozaar] 50 mg PO DAILY 02/02/17 [History] atorvaSTATin [Lipitor] 20 mg PO BEDTIME 01/31/18 [History] Past Medical History HEENT History: Reports: Cataract Cardiovascular History: Reports: High Cholesterol, Hypertension Gastrointestinal History: Reports: GERD Genitourinary History: Reports: UTI, Recurrent 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: , Other (See Below) Other 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 TEACHER History: Menopausal Musculoskeletal History: Reports: Osteoarthritis, Other (See Below) Other Musculoskeletal History: Back spasms Endocrine/Metabolic History: Reports: Vitamin D Deficiency - Infectious Disease History Infectious Disease History: Reports: Chicken Pox - Past Surgical History HEENT Surgical History: Reports: Adenoidectomy, Tonsillectomy GI Surgical History: Reports: Appendectomy, Cholecystectomy Other GI Surgeries/Procedures: Exploratory Lap Social & Family History - Tobacco Use Smoking Status *Q: Never Smoker - Caffeine Use Caffeine Use: Reports: Coffee - Recreational Drug Use Recreational Drug Use: No ED ROS GENERAL - Review of Systems Review Of Systems: See Below Constitutional: Denies: Fever, Chills HEENT: Reports: Other (Some slight swelling and fever blisters on her lips for the past several weeks) Respiratory: Denies: Shortness of Breath, Cough Cardiovascular: Denies: Chest Pain, Palpitations GI/Abdominal: Denies: Abdominal Pain, Nausea, Vomiting Musculoskeletal: Reports: No Symptoms Skin: Reports: Rash (Intermittent rash that currently is not present) Neurological: Denies: Headache, Weakness Psychiatric: Reports: No Symptoms ED EXAM, RENAL/ - Physical Exam Exam: See Below Exam Limited By: No Limitations General Appearance: Alert, No Apparent Distress Head: Atraumatic Neck: Non-Tender Respiratory/Chest: No Respiratory Distress, Lungs Clear Back Exam: No: CVA Tenderness (R), CVA Tenderness (L) Psychiatric: Normal Affect Skin Exam: Warm, Dry. No: Rash Course - Vital Signs Last Recorded V/S: Last Vital Signs Temp 97.9 F 05/30/20 09:13 Pulse 90 05/30/20 09:13 Resp 16 05/30/20 09:13 BP 172/77 H 05/30/20 09:13 Pulse Ox 94 L 05/30/20 09:13 - Orders/Labs/Meds Orders: Active Orders 24 hr Category Date Time Status CULTURE URINE [RM] Stat Lab 05/30/20 09:47 Received Labs: Laboratory Tests 05/30/20 Range/Units 09:27 Urine Color Yellow (YELLOW) Urine Appearance Clear (CLEAR) Urine pH 7.0 (5.0-8.0) Ur Specific [place] 1.010 (1.008-1.030) Urine Protein Negative (NEGATIVE) mg/dL Urine Glucose (UA) Negative (NEGATIVE) mg/dL Urine Ketones Negative (NEGATIVE) mg/dL Urine Occult Blood Large H (NEGATIVE) Urine Nitrite Negative (NEGATIVE) Urine Bilirubin Negative (NEGATIVE) Urine Urobilinogen 0.2 (0.2-1.0) EU/dL Ur Leukocyte Esterase Large H (NEGATIVE) Urine RBC Not seen (0-5) Urine WBC >100 H (0-5) Ur Epithelial Cells Rare Urine Bacteria Rare - Re-Assessments/Exams Free Text/Narrative Re-Assessment/Exam: 05/30/20 09:25 A UA was obtained. 05/30/20 09:48 UA does show a lot of inflammatory response including white cells and leukocyte esterase positive. Not a lot of bacteria but she did drink cranberry juice this morning. A culture was initiated and she will be placed on Macrobid. Recheck if not improving. Departure - Departure Time of Disposition: 10:15 Disposition: Home, Self-Care 01 Clinical Impression: Cystitis - Discharge Information Instructions: Urinary Tract Infection, Adult, [id number] Referrals: Will Ford MD [Primary Care Provider] - Forms: ED Department Discharge Care Plan Goals: Take antibiotic twice daily at least 5 days, and recheck in 2 to 3 days if not improving. Return anytime if worsening such as fever or vomiting the medication. Sepsis Event Note (ED) - Evaluation Sepsis Screening Result: No Definite Risk - Focused Exam Vital Signs: Vital Signs Temp Pulse Resp BP Pulse Ox 05/30/20 09:13 97.9 F 90 16 172/77 H 94 L - My Orders Last 24 Hours: My Active Orders 05/30/20 09:47 CULTURE URINE [RM] Stat - Assessment/Plan Last 24 Hours: My Active Orders 05/30/20 09:47 CULTURE URINE [RM] Stat
== END 2020-05-30 10:15 | disposition home or self-care (01) ==
LOC: JP.ED 08:58
DX: N30.90 Cystitis, unspecified without hematuria (principal); I10 Essential (primary) hypertension; E78.00 Pure hypercholesterolemia, unspecified; Z88.0 Allergy status to penicillin; Z88.2 Allergy status to sulfonamides; Z88.8 Allergy status to other drugs, medicaments and biological substances; Z79.82 Long term (current) use of aspirin; Z79.899 Other long term (current) drug therapy
CPT/HCPCS: 81001; 87086; 99283

== ENCOUNTER 2021-08-25 07:30 | Day surgery (SDC) | payer MEDICARE, OTHER ==
[2021-08-25] MEDS: Sodium Chloride 0.9% 10 ML Syringe FLUSH PRN (08:19)
[2021-08-25 09:54] VITALS: BP 153/68; PULSE 69
--- NOTE | 2021-08-25 13:06 | OR ---
DATE OF PROCEDURE: 08/25/2021 SURGEON: Breonna Amezcua MD POSTOPERATIVE CARE: Postoperative care will be provided mainly at the [address] [place] [address] [facility] in conjunction with [facility]. PREOPERATIVE DIAGNOSIS: Cataract, right eye. POSTOPERATIVE DIAGNOSIS: Cataract, right eye. PROCEDURE: Phacoemulsification with intraocular lens placement, right eye. ANESTHESIA: Topical and intracameral. ESTIMATED BLOOD LOSS: Minimal. COMPLICATIONS: None. PATHOLOGY SPECIMENS: None. SURGICAL FINDINGS: None. INDICATION FOR PROCEDURE: The patient is a 80-year-old female with history of a visually significant cataract in the right eye, which interfered with activities of daily living. This consisted of a nuclear sclerosis cataract. Following careful discussion of the risks, benefits and alternatives to cataract extraction with intraocular lens placement including blindness and , the patient elected to proceed, and informed, written consent was obtained prior to the procedure. DESCRIPTION OF THE PROCEDURE: The patient was previously identified, and a luz placed above the right eye. All sources, including the patient, indicated that the right eye was the correct eye. The patient was subsequently taken to the operating room where standard monitors were applied. The patient was then prepped and draped in the usual sterile fashion for ophthalmic surgery. Attention was first directed at the 12 o'clock position where a paracentesis port was fashioned. Shugar solution followed by Viscoat was instilled into the eye. Attention was then directed to the 8:30 position where a triplanar incision was made in a near-clear manner using a keratome. A continuous capsulorrhexis was then made using a combination of the cystotome and Utrata forceps. Hydrodissection was achieved using a balanced salt solution, and the lens rotated nicely. Phacoemulsification was then done using a modified [id number] technique without complication. Phaco time was 11.71 CDE. The remaining cortex was removed using the irrigation/aspiration handpiece. Provisc was then instilled into the eye. A Technis lens, model DCB00, at 23.0 diopters was then placed in the capsular bag using an [place] injector. The remaining viscoelastic was removed using the irrigation/aspiration forceps. All wounds were then checked and found to be watertight. The lid speculum and drapes were removed. Maxitrol ointment was placed in the patient's right eye, and the eye was shielded. The patient tolerated the procedure well. The patient was instructed to follow up tomorrow. All needle and sponge counts were correct at the end of the procedure. There were no surgical findings. Breonna Amezcua MD /[id number]
== END 2021-08-25 10:11 | disposition home or self-care (01) ==
LOC: JP.SDS 07:30
PROVIDERS: ATTEND Ophthalmology
DX: H25.11 Age-related nuclear cataract, right eye (principal); I10 Essential (primary) hypertension; K21.9 Gastro-esophageal reflux disease without esophagitis
CPT/HCPCS: V2632

== ENCOUNTER 2021-09-08 07:15 | Day surgery (SDC) | payer MEDICARE, OTHER ==
[2021-09-08] MEDS ORDERED: Sodium Chloride 0.9% 10 ML Syringe FLUSH ONE (08:00)
[2021-09-08 08:53] VITALS: BP 168/71; PULSE 70
--- NOTE | 2021-09-08 10:29 | OR ---
DATE OF PROCEDURE: 09/08/2021 SURGEON: Breonna Amezcua MD POSTOPERATIVE CARE: Postoperative care will be provided mainly at the [address] [place] [address] [facility] in conjunction with [facility]. PREOPERATIVE DIAGNOSIS: Cataract, left eye. POSTOPERATIVE DIAGNOSIS: Cataract, left eye. PROCEDURE: Phacoemulsification with intraocular lens placement, left eye. ANESTHESIA: Topical and intracameral. ESTIMATED BLOOD LOSS: Minimal. COMPLICATIONS: None. PATHOLOGY SPECIMENS: None. SURGICAL FINDINGS: None. INDICATION FOR PROCEDURE: The patient is a 80-year-old female with history of a visually significant cataract in the left eye, which interfered with activities of daily living. This consisted of a nuclear sclerosis cataract. Following careful discussion of the risks, benefits and alternatives to cataract extraction with intraocular lens placement including blindness and , the patient elected to proceed, and informed, written consent was obtained prior to the procedure. DESCRIPTION OF THE PROCEDURE: The patient was previously identified, and a luz placed above the left eye. All sources, including the patient, indicated that the left eye was the correct eye. The patient was subsequently taken to the operating room where standard monitors were applied. The patient was then prepped and draped in the usual sterile fashion for ophthalmic surgery. Attention was first directed at the 12 o'clock position where a paracentesis port was fashioned. Shugar solution followed by Viscoat was instilled into the eye. Attention was then directed to the 8:30 position where a triplanar incision was made in a near-clear manner using a keratome. A continuous capsulorrhexis was then made using a combination of the cystotome and Utrata forceps. Hydrodissection was achieved using a balanced salt solution, and the lens rotated nicely. Phacoemulsification was then done using a modified [id number] technique without complication. Phaco time was 11.84 CDE. The remaining cortex was removed using the irrigation/aspiration handpiece. Provisc was then instilled into the eye. A Technis lens, model DCB00, at 23.5 diopters was then placed in the capsular bag using an [place] injector. The remaining viscoelastic was removed using the irrigation/aspiration forceps. All wounds were then checked and found to be watertight. The lid speculum and drapes were removed. Maxitrol ointment was placed in the patient's left eye, and the eye was shielded. The patient tolerated the procedure well. The patient was instructed to follow up tomorrow. All needle and sponge counts were correct at the end of the procedure. There were no surgical findings. Breonna Amezcua MD /[id number]
== END 2021-09-08 09:07 | disposition home or self-care (01) ==
LOC: JP.SDS 07:15
PROVIDERS: ATTEND Ophthalmology
DX: H25.12 Age-related nuclear cataract, left eye (principal); I10 Essential (primary) hypertension